=== PATIENT | male | born 1960 | race Caucasian/White ===

== ENCOUNTER 2019-09-26 04:58 | Inpatient (IN) | payer MEDICARE, MEDICAID ==
[~2019-09-26] VITALS: Ht 185.4 cm; Wt 89.8 kg
[~2019-09-26 04:58] MED LIST: HYDR-523 PO; LORA1TAB PO; MIRT30TA PO
[2019-09-26 06:15] LABS: EOSINOPHILS % 2.5 % (0.0-5.0); HEMATOCRIT. 40.4 % (42.0-52.0); HEMOGLOBIN. 14.4 g/dL (14.0-18.0); LYMPHOCYTES % 34.7 % (20.0-50.0); MEAN CORPUSCULAR HEMOGLOBIN 34.1 pg (28.0-32.0); MEAN CORPUSCULAR VOLUME 95.6 fL (80.0-94.0); MEAN PLATELET VOLUME 8.4 fl (7.4-10.4); MONOCYTES % 10.1 % (2.0-8.0); NEUTROPHILS % 51.7 % (40.0-76.0); PLATELET 127 x1000/uL (130-400); RED BLOOD CELL COUNT 4.22 mill/uL (4.7-6.1); RED CELL DISTRIBUTION WIDTH 12.5 % (11.6-14.6)
[2019-09-26 06:23] LABS: CHLORIDE 108 mEq/L (98-107); PROTHROMBIN TIME 10.7 sec (9.6-11.0)
[2019-09-26 06:29] LABS: ETHANOL BLOOD 84 mg/dL
[2019-09-26] MEDS ORDERED: ONDANSETRON 4MG ODT PO ONE (06:45)
[2019-09-26] MEDS ORDERED: LORAZEPAM 2MG/ML CPJ IV ONE (06:45)
[2019-09-26] MEDS ORDERED: ASPIRIN 81MG TABLET PO ONE (06:45)
[2019-09-26] MEDS ORDERED: HYDROCODONE/ACETAMINOPHEN 5/325MG TABLET PO ONE (06:45)
[2019-09-26 07:44] LABS: CLARITY URINE CLEAR (CLEAR); COLOR URINE YELLOW (YELLOW); KETONES URINE 2+ (NEGATIVE); LEUKOCYTE ESTERASE URINE NEGATIVE (NEGATIVE); NITRITE URINE NEGATIVE (NEGATIVE); OCCULT BLOOD URINE NEGATIVE (NEGATIVE); PROTEIN URINE 1+ (NEGATIVE); SPECIFIC GRAVITY URINE 1.024 (1.005-1.030)
[2019-09-26] MEDS ORDERED: ONDANSETRON HCL 4MG/2ML INJ IV PRN (12:00)
[2019-09-26] MEDS ORDERED: HYDROCODONE/ACETAMINOPHEN 5/325MG TABLET PO PRN (12:00)
[2019-09-26] MEDS ORDERED: CLONIDINE 0.1MG TABLET PO PRN (12:00)
[2019-09-26] MEDS ORDERED: IPRATROPIUM/ALBUTEROL 0.5-3(2.5)MG/3ML NEB ORI PRN (12:00)
[2019-09-26 13:30] VITALS: BP 132/78
[2019-09-26] MEDS ORDERED: HYDR-4009 PO (14:24)
[2019-09-26] MEDS ORDERED: TRAZ-251 PO (14:24)
[2019-09-26] MEDS: ENOXAPARIN 40MG/0.4ML SYR SUBCUT SCH (14:53)
[2019-09-26] MEDS: HYDROCODONE/ACETAMINOPHEN 10/325MG TABLET PO PRN (14:54)
[2019-09-26] MEDS: SODIUM CHLORIDE 0.9% 1,000 ML IV SCH ×2 (15:36→20:55)
[2019-09-26 16:00] VITALS: BP 111/64
[2019-09-26 16:27] LABS: CREATINE KINASE 405 IU/L (39-308)
[2019-09-26 16:28] LABS: CREATINE KINASE MB FRACTION 2.1 ng/mL (0.5-3.6)
[2019-09-26 19:02] LABS: *AMPHETAMINES SCREEN URINE NEGATIVE (NEGATIVE); *BARBITURATES SCREEN URINE NEGATIVE (NEGATIVE); *BENZODIAZEPINES SCREEN URINE PRESUMTIVE POSITIVE (NEGATIVE); *COCAINE SCREEN URINE NEGATIVE (NEGATIVE)
[2019-09-26 19:03] LABS: CANNABINOID URINE SCREEN PRESUMTIVE POSITIVE (NEGATIVE); METHADONE URINE SCREEN NEGATIVE (NEGATIVE); OPIATES URINE SCREEN PRESUMTIVE POSITIVE (NEGATIVE); PHENCYCLIDINE URINE SCREEN NEGATIVE (NEGATIVE)
[2019-09-26 20:00] VITALS: BP 140/74
[2019-09-26] MEDS: TRAZODONE HCL 50MG TABLET PO SCH (20:58)
[2019-09-26] MEDS: CHLORDIAZEPOXIDE 5 MG CAPSULE PO SCH (20:58)
[2019-09-26] MEDS: MIRTAZAPINE 15MG TABLET PO SCH (20:58)
[2019-09-26] MEDS: MORPHINE SULFATE 2 MG/ML CPJ (NOT FOR IM USE) IV PRN (22:27)
[2019-09-27] VITALS: BP 102/48
[2019-09-27 00:50] LABS: ETHANOL BLOOD < 10 mg/dL
[2019-09-27 00:55] LABS: CREATINE KINASE 285 IU/L (39-308)
[2019-09-27 00:56] LABS: CREATINE KINASE MB FRACTION 1.7 ng/mL (0.5-3.6)
[2019-09-27 04:00] VITALS: BP 108/63
[2019-09-27] MEDS: HYDROCODONE/ACETAMINOPHEN 10/325MG TABLET PO PRN ×3 (06:19→18:54)
[2019-09-27] MEDS: CHLORDIAZEPOXIDE 5 MG CAPSULE PO SCH ×3 (06:19→21:10)
[2019-09-27 08:00] VITALS: BP 112/70
[2019-09-27] MEDS: ASPIRIN 81MG EC TABLET PO SCH (08:25)
[2019-09-27] MEDS: SODIUM CHLORIDE 0.9% 1,000 ML IV SCH (08:25)
[2019-09-27 09:51] LABS: BASOPHILS % 1.2 % (0.0-2.0); EOSINOPHILS % 5.8 % (0.0-5.0); HEMATOCRIT. 37.1 % (42.0-52.0); HEMOGLOBIN. 13.3 g/dL (14.0-18.0); LYMPHOCYTES % 29.1 % (20.0-50.0); MEAN CORPUSCULAR HEMOGLOBIN 34.1 pg (28.0-32.0); MEAN CORPUSCULAR VOLUME 95.2 fL (80.0-94.0); MEAN PLATELET VOLUME 8.7 fl (7.4-10.4); NEUTROPHILS % 52.9 % (40.0-76.0); PLATELET 116 x1000/uL (130-400); RED BLOOD CELL COUNT 3.89 mill/uL (4.7-6.1); RED CELL DISTRIBUTION WIDTH 12.5 % (11.6-14.6)
[2019-09-27] MEDS: MORPHINE SULFATE 2 MG/ML CPJ (NOT FOR IM USE) IV PRN (09:56)
[2019-09-27 10:47] LABS: CHLORIDE 110 mEq/L (98-107)
[2019-09-27 12:00] VITALS: BP 127/60
[2019-09-27 16:00] VITALS: BP 110/61
[2019-09-27] MEDS: ENOXAPARIN 40MG/0.4ML SYR SUBCUT SCH (18:53)
[2019-09-27] MEDS: THIAMINE HCL 100MG TABLET PO SCH (18:54)
[2019-09-27] MEDS: FOLIC ACID 1MG TABLET PO SCH (18:54)
[2019-09-27 20:00] VITALS: BP 121/62
[2019-09-27] MEDS: TRAZODONE HCL 50MG TABLET PO SCH (21:09)
[2019-09-27] MEDS: MIRTAZAPINE 15MG TABLET PO SCH (21:10)
[2019-09-28] VITALS: BP 104/50
[2019-09-28] MEDS: HYDROCODONE/ACETAMINOPHEN 10/325MG TABLET PO PRN ×4 (01:17→20:52)
[2019-09-28 04:00] VITALS: BP 106/59
[2019-09-28] MEDS: SODIUM CHLORIDE 0.9% 1,000 ML IV SCH ×3 (04:00→20:55)
[2019-09-28] MEDS: CHLORDIAZEPOXIDE 5 MG CAPSULE PO SCH ×3 (05:13→20:52)
[2019-09-28 07:22] LABS: EOSINOPHILS % 5.1 % (0.0-5.0); HEMATOCRIT. 38.3 % (42.0-52.0); HEMOGLOBIN. 13.4 g/dL (14.0-18.0); MEAN CORPUSCULAR HEMOGLOBIN 33.3 pg (28.0-32.0); MEAN CORPUSCULAR VOLUME 95.4 fL (80.0-94.0); MEAN PLATELET VOLUME 8.8 fl (7.4-10.4); MONOCYTES % 12.4 % (2.0-8.0); NEUTROPHILS % 45.5 % (40.0-76.0); PLATELET 116 x1000/uL (130-400); RED BLOOD CELL COUNT 4.01 mill/uL (4.7-6.1); RED CELL DISTRIBUTION WIDTH 12.5 % (11.6-14.6)
[2019-09-28 07:35] LABS: CHLORIDE 108 mEq/L (98-107)
[2019-09-28 08:00] VITALS: BP 130/73
[2019-09-28] MEDS: FOLIC ACID 1MG TABLET PO SCH (08:26)
[2019-09-28] MEDS: THIAMINE HCL 100MG TABLET PO SCH (08:26)
[2019-09-28] MEDS: ASPIRIN 81MG EC TABLET PO SCH (08:26)
[2019-09-28 12:00] VITALS: BP 102/59
[2019-09-28] MEDS: ENOXAPARIN 40MG/0.4ML SYR SUBCUT SCH (13:58)
[2019-09-28 16:00] VITALS: BP 114/69
[2019-09-28 20:00] VITALS: BP 118/62
[2019-09-28] MEDS: TRAZODONE HCL 50MG TABLET PO SCH (20:51)
[2019-09-28] MEDS: MIRTAZAPINE 15MG TABLET PO SCH (20:52)
[2019-09-28 22:17] LABS: HEPATITIS B SURFACE ANTIGEN NEGATIVE
[2019-09-29] VITALS: BP 108/62
[2019-09-29 04:00] VITALS: BP 127/74
[2019-09-29] MEDS: HYDROCODONE/ACETAMINOPHEN 10/325MG TABLET PO PRN ×3 (04:39→16:57)
[2019-09-29] MEDS: CHLORDIAZEPOXIDE 5 MG CAPSULE PO SCH ×2 (06:56→14:47)
[2019-09-29 08:00] VITALS: BP 119/73
[2019-09-29] MEDS: THIAMINE HCL 100MG TABLET PO SCH (09:05)
[2019-09-29] MEDS: ASPIRIN 81MG EC TABLET PO SCH (09:05)
[2019-09-29] MEDS: FOLIC ACID 1MG TABLET PO SCH (09:05)
[2019-09-29] MEDS: SODIUM CHLORIDE 0.9% 1,000 ML IV SCH ×2 (10:00)
[2019-09-29 12:00] VITALS: BP 124/73
[2019-09-29] MEDS: ENOXAPARIN 40MG/0.4ML SYR SUBCUT SCH (14:47)
[2019-10-01 16:25] LABS: HEPATITIS A AB IGM NEGATIVE (NEGATIVE)
== END 2019-09-29 17:40 | DRG 896 ==
LOC: ER 04:58 → EDBEDREQ 07:17 → EDBEDREQTM 07:17 → ENRESERV 11:56 → 7WST 13:36
PROVIDERS: ADMIT Internal Medicine Nephrology; ATTEND Internal Medicine Nephrology
DX: F10.229 Alcohol dependence with intoxication, unspecified (principal); G92 Toxic encephalopathy; F10.239 Alcohol dependence with withdrawal, unspecified; G89.29 Other chronic pain; E87.8 Other disorders of electrolyte and fluid balance, not elsewhere classified; R16.0 Hepatomegaly, not elsewhere classified; F17.210 Nicotine dependence, cigarettes, uncomplicated; K76.0 Fatty (change of) liver, not elsewhere classified; M17.11 Unilateral primary osteoarthritis, right knee; F99 Mental disorder, not otherwise specified; F12.10 Cannabis abuse, uncomplicated; F13.10 Sedative, hypnotic or anxiolytic abuse, uncomplicated; W05.0XXA Fall from non-moving wheelchair, initial encounter; Z79.899 Other long term (current) drug therapy; Z71.6 Tobacco abuse counseling
CPT/HCPCS: 36415; 71045; 73562; 73610; 76700; 80048; 80053; 80305; 80320; 81003; 82550; 82553; 84484; 85025; 86705; 86709; 86803; 87340; 93005; 97162; 97166; 99285; J1650; J2060; J2270; Q0162; G0480

== ENCOUNTER 2019-11-02 00:21 | Emergency (ER) | payer MEDICAID, MEDICARE ==
[~2019-11-02] VITALS: Ht 180.3 cm; Wt 86.0 kg
[~2019-11-02 00:21] MED LIST changes: +HYDR-4009 PO; -HYDR-523 PO; -LORA1TAB PO; +TRAZ-251 PO
[2019-11-02] MEDS ORDERED: HYDROCODONE/ACETAMINOPHEN 5/325MG TABLET PO ONE (01:15)
[2019-11-02 11:47] VITALS: BP 134/80
== END 2019-11-02 11:55 | disposition home or self-care (01) ==
LOC: ER 00:21
DX: M79.604 Pain in right leg (principal); M79.605 Pain in left leg; Z59.0 Homelessness; Z79.899 Other long term (current) drug therapy
CPT/HCPCS: 72220; 99283

== ENCOUNTER 2021-10-07 01:38 | Emergency (ER) | payer MEDICAID ==
[~2021-10-07] VITALS: Ht 182.9 cm; Wt 91.0 kg
[~2021-10-07 01:38] MED LIST changes: +MIRT-111 PO; -MIRT30TA PO
[2021-10-07 02:50] LABS: CLARITY URINE CLEAR (CLEAR); COLOR URINE YELLOW (YELLOW); KETONES URINE NEGATIVE (NEGATIVE); LEUKOCYTE ESTERASE URINE NEGATIVE (NEGATIVE); NITRITE URINE NEGATIVE (NEGATIVE); OCCULT BLOOD URINE NEGATIVE (NEGATIVE); PROTEIN URINE NEGATIVE (NEGATIVE); SPECIFIC GRAVITY URINE 1.012 (1.005-1.030); UROBILINOGEN URINE 0.2 E.U./dL (0.2-1.0)
[2021-10-07 03:15] LABS: *AMPHETAMINES SCREEN URINE NEGATIVE (NEGATIVE); *BARBITURATES SCREEN URINE NEGATIVE (NEGATIVE); *BENZODIAZEPINES SCREEN URINE PRESUMTIVE POSITIVE (NEGATIVE); *COCAINE SCREEN URINE PRESUMTIVE POSITIVE (NEGATIVE)
[2021-10-07 03:16] LABS: CANNABINOID URINE SCREEN PRESUMTIVE POSITIVE (NEGATIVE); METHADONE URINE SCREEN NEGATIVE (NEGATIVE); OPIATES URINE SCREEN NEGATIVE (NEGATIVE); PHENCYCLIDINE URINE SCREEN NEGATIVE (NEGATIVE)
[2021-10-07 03:52] LABS: BASOPHILS % 1.2 % (0.0-2.0); EOSINOPHILS % 3.6 % (0.0-5.0); HEMATOCRIT. 39.4 % (42.0-52.0); HEMOGLOBIN. 14.1 g/dL (14.0-18.0); LYMPHOCYTES % 38.9 % (20.0-50.0); MEAN CORPUSCULAR HEMOGLOBIN 34.5 pg (28.0-32.0); MEAN CORPUSCULAR VOLUME 96.6 fL (80.0-94.0); MEAN PLATELET VOLUME 7.7 fl (7.4-10.4); NEUTROPHILS % 44.3 % (40.0-76.0); PLATELET 148 x1000/uL (130-400); RED BLOOD CELL COUNT 4.08 mill/uL (4.7-6.1); RED CELL DISTRIBUTION WIDTH 14.8 % (11.6-14.6)
[2021-10-07 04:07] LABS: CHLORIDE 110 mEq/L (98-107)
[2021-10-07 04:10] LABS: ETHANOL BLOOD 144 mg/dL
[2021-10-07] MEDS ORDERED: CHLORDIAZEPOXIDE 25MG CAPSULE PO ONE ×2 (07:15→14:15)
[2021-10-07] MEDS ORDERED: BUSPIRONE HCL 5MG TABLET PO SCH (14:45)
[2021-10-07] MEDS ORDERED: KETOROLAC 15MG/ML VIAL IM ONE (18:45)
[2021-10-07 19:46] VITALS: BP 130/86
[2021-10-07] MEDS ORDERED: TRAZODONE HCL 50MG TABLET PO SCH (21:00)
[2021-10-07] MEDS ORDERED: QUETIAPINE FUMARATE 50MG TABLET PO SCH (21:00)
== END 2021-10-07 20:06 | disposition short-term general hospital (02) ==
LOC: ER 01:38
DX: R45.851 Suicidal ideations (principal); F19.10 Other psychoactive substance abuse, uncomplicated; F14.10 Cocaine abuse, uncomplicated; F15.10 Other stimulant abuse, uncomplicated; F31.9 Bipolar disorder, unspecified; Z86.73 Personal history of transient ischemic attack (TIA), and cerebral infarction without residual deficits; Z88.0 Allergy status to penicillin; Z20.822 Contact with and (suspected) exposure to COVID-19
CPT/HCPCS: 36415; 80053; 80305; 80307; 80320; 80329; 81003; 85025; 87426; 96372; 99285; J1885; G0480

== ENCOUNTER 2023-01-11 19:51 | Emergency (ER) | payer MEDICARE, MEDICAID ==
[~2023-01-11] VITALS: Ht 182.9 cm; Wt 91.0 kg
[2023-01-12 04:41] VITALS: BP 124/72
== END 2023-01-12 04:57 | disposition home or self-care (01) ==
LOC: ER 19:51
DX: M25.561 Pain in right knee (principal); F10.229 Alcohol dependence with intoxication, unspecified; Y90.0 Blood alcohol level of less than 20 mg/100 ml; F31.9 Bipolar disorder, unspecified; Z86.73 Personal history of transient ischemic attack (TIA), and cerebral infarction without residual deficits; F14.10 Cocaine abuse, uncomplicated; F15.10 Other stimulant abuse, uncomplicated
CPT/HCPCS: 73562; 99284

== ENCOUNTER 2023-01-12 05:05 | Emergency (ER) | payer MEDICARE, MEDICAID | END 2023-01-12 06:01 | disposition left against medical advice (07) | LOC: ER 05:05 | DX: M54.50 Low back pain, unspecified (principal); Z53.21 Procedure and treatment not carried out due to patient leaving prior to being seen by health care provider | CPT/HCPCS: 99281 ==

== ENCOUNTER 2023-02-12 23:40 | Emergency (ER) | payer MEDICAID ==
[~2023-02-12] VITALS: Ht 180.3 cm; Wt 95.0 kg
[2023-02-12 23:45] VITALS: BP 139/94; PULSE 92; RESP 18; TEMP 98.2; O2SAT 98
== END 2023-02-13 03:59 | disposition left against medical advice (07) ==
LOC: ER 23:40
DX: Z53.21 Procedure and treatment not carried out due to patient leaving prior to being seen by health care provider (principal)
CPT/HCPCS: 99281

== ENCOUNTER 2024-12-09 11:42 | Emergency (ER) | payer MEDICARE, MEDICAID ==
[~2024-12-09] VITALS: Ht 175.3 cm; Wt 78.0 kg
[~2024-12-09 11:42] MED LIST changes: -MIRT-111 PO; +MIRT-145 PO
[2024-12-09 11:46] VITALS: O2SAT 98
[2024-12-09] MEDS: LORAZEPAM 0.5MG TABLET PO ONE (13:05)
[2024-12-09 13:26] LABS: BASOPHILS % 0.7 % (0.0-2.0); EOSINOPHILS % 0.5 % (0.0-5.0); HEMATOCRIT. 37.9 % (42.0-52.0); HEMOGLOBIN. 13.3 g/dL (14.0-18.0); LYMPHOCYTES % 16.2 % (20.0-50.0); MEAN CORPUSCULAR HGB CONC 34.9 g/dL (31.0-37.0); MEAN CORPUSCULAR VOLUME 94.4 fL (80.0-94.0); MONOCYTES % 8.2 % (2.0-8.0); NEUTROPHILS % 74.4 % (40.0-76.0); PLATELET 200 x1000/uL (130-400); RED BLOOD CELL COUNT 4.02 mill/uL (4.7-6.1); RED CELL DISTRIBUTION WIDTH 12.4 % (11.6-14.6); WHITE BLOOD COUNT 8.1 x1000/uL (4.5-11.0)
[2024-12-09 13:30] LABS: CHLORIDE 104 mEq/L (98-107); POTASSIUM 3.5 mEq/L (3.5-5.1); SODIUM 138 mEq/L (136-145)
[2024-12-09 13:31] LABS: CARBON DIOXIDE 21 mEq/L (21-32)
[2024-12-09 13:32] LABS: CALCIUM 9.4 mg/dL (8.7-10.4)
[2024-12-09 13:36] LABS: CREATININE 0.7 mg/dL (0.6-1.3); GLUCOSE 107 mg/dL (70-105)
[2024-12-09 13:37] LABS: UREA NITROGEN BLOOD 10 mg/dL (9-23)
[2024-12-09] MEDS ORDERED: IBUP-2029 MT (13:58)
[2024-12-09] MEDS ORDERED: CHLORDIAZEPOXIDE 10MG CAPSULE PO ONE (14:30)
[2024-12-09] MEDS: PHENOBARBITAL SODIUM 130MG/ML 1ML IM STA (14:52)
[2024-12-09] MEDS: KETOROLAC 30MG/ML VIAL IM ONE (14:52)
[2024-12-09] MEDS: CHLORDIAZEPOXIDE 25MG CAPSULE PO NR (14:52)
[2024-12-09 15:44] VITALS: BP 143/74; PULSE 80; RESP 18; TEMP 36.9; O2SAT 98
== END 2024-12-09 15:44 | disposition home or self-care (01) ==
LOC: ER 11:42
DX: F15.10 Other stimulant abuse, uncomplicated (principal); M17.11 Unilateral primary osteoarthritis, right knee; F14.10 Cocaine abuse, uncomplicated; F12.10 Cannabis abuse, uncomplicated; I10 Essential (primary) hypertension; Z88.8 Allergy status to other drugs, medicaments and biological substances; Z88.0 Allergy status to penicillin; Z91.041 Radiographic dye allergy status; Z79.899 Other long term (current) drug therapy; Z98.890 Other specified postprocedural states; Z86.73 Personal history of transient ischemic attack (TIA), and cerebral infarction without residual deficits
CPT/HCPCS: 99284; 80048; 85025; 36415; 73560; 96372; J1885; J2560